=== PATIENT | male | born 1975 | race Asian ===

== ENCOUNTER 2025-02-14 15:54 | Emergency (ER) | payer OTHER, SELFPAY ==
[2025-02-14 15:58] VITALS: BP 157/79; PULSE 64; RESP 20; TEMP 36.6; O2SAT 96; BMI 43.2
--- NOTE | 2025-02-15 15:24 | ED.WOUNDLAC ---
HPI - Wound/Laceration General Chief Complaint: Wound/Laceration Stated Complaint: Rt pinky finger laceration. Time Seen by Provider: 02/14/25 17:25 Mode of arrival: Ambulatory History of Present Illness HPI narrative: Pt presented to the ER with laceration to his R 5th digit reaching for his care keys. Related Data Allergies Allergy/AdvReac Type Severity Reaction Status Date / Time No Known Allergies Allergy Mild Verified 02/14/25 15:59 Patient History Smoking Status: Never smoker Exam Initial Vital Signs Initial Vital Signs: Vital Signs Temperature 98 F 02/14/25 15:58 Pulse Rate 64 02/14/25 15:58 Respiratory Rate 20 02/14/25 15:58 Blood Pressure 157/79 H 02/14/25 15:58 Pulse Oximetry 96 02/14/25 15:58 Oxygen Delivery Method Room Air 02/14/25 15:58 Course Course Course Narrative: Pt left without being seen (after triage) @ 8360 Discharge Plan Departure Patient Disposition: Left Without Being Seen Clinical Impression: Patient left after triage
== END 2025-02-14 17:27 | disposition left against medical advice (07) ==
PROVIDERS: Emergency Provider Emergency Medicine
CPT/HCPCS: 99281